=== PATIENT | male | born 1935 | race Caucasian/White ===

== ENCOUNTER 2019-11-15 14:15 | Outpatient (CLI) | payer MEDICARE ==
--- NOTE | 2019-11-15 14:42 | RAD ---
EXAM: 2 views of the bilateral hips HISTORY: Bilateral hip pain COMPARISON: None FINDINGS: 2 views of the bilateral hips shows no evidence of acute fracture or dislocation. Mild bila teral degenerative changes are seen. No soft tissue swelling is present. IMPRESSION: Mild bilateral hip osteoarthritis
--- NOTE | 2019-11-15 16:15 | RAD ---
LUMBAR SPINE TWO VIEWS: History: Low back pain. FINDINGS: Multilevel degenerative changes are present. No acute fracture, subluxation or bony destruction is se en. Avascular calcifications. POS: [facility]
== END 2019-11-15 14:16 | disposition home or self-care (01) ==
LOC: BICRAD 14:15
PROVIDERS: ATTEND Internal Medicine
DX: M54.5 Low back pain (principal); M25.552 Pain in left hip; M25.551 Pain in right hip; M16.0 Bilateral primary osteoarthritis of hip
CPT/HCPCS: 72100; 73522

== ENCOUNTER 2020-03-28 10:40 | Emergency (ER) | payer MEDICARE ==
[2020-03-28 11:35] LABS: #Eosinphils 0.3 thou/uL (0.0-0.7); #Lymphocytes 1.4 thou/uL (1.20-3.40); #Monocytes 0.8 thou/uL (0.11-0.59); #Neutrophils 3.6 thou/uL (1.40-6.50); %Basophils 0.7 % (0.0-1.0); %Eosinophils 4.5 % (0.0-10.0); %Lymphocytes 22.8 % (21.0-51.0); %Monocytes 12.6 % (0.0-10.0); %Neutrophils 59.4 % (42.0-75.0); Hemoglobin 13.2 g/dL (14.0-18.0); Mean Corpuscular HGB CONC 34.1 g/dL (32.0-36.0); Mean Corpuscular Hemoglobin 31.3 pg (27.0-31.0); Mean Corpuscular Volume 91.9 fL (78.0-98.0); Mean Platelet Volume 7.1 fL (7.4-10.4); Platelet Count 187 thou/uL (130-400); RBC Distribution Width 13.1 % (11.5-14.5); Red Blood Cell (RBC) Count 4.21 mill/uL (4.70-6.10); White Blood Cell (WBC) Count 6.1 thou/uL (4.8-10.8)
--- NOTE | 2020-03-28 11:46 | CT ---
BRAIN CT WITHOUT IV CONTRAST: Date; 03/28/2020 HISTORY: Elevated blood pressure for 1 week. FINDINGS: Atherosclerotic calcific changes involving the vertebrobasilar and carotid arteries. No focal mass or midline shift. No intra or extra-axial hemorrhage. Evidence for some postoperative changes involving the right frontal bone. Minimal ethmoid sinus mucosal disease. The mastoids appear clear. IMPRESSION: 1. Atrophy and chronic white matter ischemic change. 2. Mild ethmoid sinus mucosal disease. 3. Atherosclerotic calcification changes. 4. No mass or bleed or other acute process. POS: [facility]
[2020-03-28 12:04] LABS: ALT (SGPT) 17 U/L (8-55); AST (SGOT) 15 U/L (5-34); Albumin 3.8 g/dL (3.4-4.8); Alkaline Phosphatase 96 U/L (40-110); Anion Gap 13 mmol/L (10-20); BUN (Urea Nitrogen) 23 mg/dL (8.4-25.7); Bilirubin, Total 0.4 mg/dL (0.2-1.2); CRP (Inflammatory) Less than 0.50 mg/dL (= or < 0.5); Calc. Creatinine Clearance 0 mL/min (70-130); Carbon Dioxide 21 mmol/L (23-31); Chloride 108 mmol/L (98-107); Estimated GFR-MDRD Greater than 90; Globulin 2.3 g/dL (2.4-3.5); Glucose 93 mg/dL (83-110); Potassium 3.8 mmol/L (3.5-5.1); Protein, Total 6.1 g/dL (5.8-8.1); Sodium 138 mmol/L (136-145)
[2020-03-28] MEDS ORDERED: diphenhydrAMINE 50 MG/ML VIAL ONE (12:34)
[2020-03-28] MEDS ORDERED: Metoclopramide HCl 10 MG/2 ML VIAL ONE (12:34)
[2020-03-28 14:52] LABS: Free T4 (Free Thyroxine) 1.43 ng/dL (0.70-1.48); Thyroid Stimulating Hormone Less than 0.0025 uIU/mL (0.35-4.94)
== END 2020-03-28 14:39 | disposition home or self-care (01) ==
LOC: ERS 10:40
DX: I10 Essential (primary) hypertension (principal); R51.9 Headache, unspecified; E78.00 Pure hypercholesterolemia, unspecified; K21.9 Gastro-esophageal reflux disease without esophagitis; M10.9 Gout, unspecified; N40.0 Benign prostatic hyperplasia without lower urinary tract symptoms; Z79.899 Other long term (current) drug therapy
CPT/HCPCS: 36415; 70450; 80053; 84439; 84443; 84484; 85025; 85652; 86140; 96365; 96375; J1200; J2765

== ENCOUNTER 2020-04-27 17:31 | Emergency (ER) | payer MEDICARE ==
[2020-04-27 18:19] LABS: #Basophils 0.1 thou/uL (0.0-0.2); #Eosinphils 0.2 thou/uL (0.0-0.7); #Lymphocytes 1.2 thou/uL (1.20-3.40); #Monocytes 0.7 thou/uL (0.11-0.59); #Neutrophils 4.2 thou/uL (1.40-6.50); %Basophils 0.8 % (0.0-1.0); %Lymphocytes 19.3 % (21.0-51.0); %Monocytes 11.1 % (0.0-10.0); %Neutrophils 65.7 % (42.0-75.0); Hemoglobin 13.7 g/dL (14.0-18.0); Mean Corpuscular HGB CONC 33.3 g/dL (32.0-36.0); Mean Corpuscular Hemoglobin 30.8 pg (27.0-31.0); Mean Corpuscular Volume 92.5 fL (78.0-98.0); Mean Platelet Volume 7.4 fL (7.4-10.4); Platelet Count 188 thou/uL (130-400); RBC Distribution Width 12.8 % (11.5-14.5); Red Blood Cell (RBC) Count 4.46 mill/uL (4.70-6.10); White Blood Cell (WBC) Count 6.4 thou/uL (4.8-10.8)
[2020-04-27 18:37] LABS: Anion Gap 13 mmol/L (10-20); BUN (Urea Nitrogen) 23 mg/dL (8.4-25.7); Calc. Creatinine Clearance 0 mL/min (70-130); Carbon Dioxide 23 mmol/L (23-31); Chloride 109 mmol/L (98-107); Estimated GFR-MDRD Greater than 90; Glucose 116 mg/dL (83-110); Potassium 3.9 mmol/L (3.5-5.1); Sodium 141 mmol/L (136-145)
[2020-04-27 18:38] LABS: ALT (SGPT) 13 U/L (8-55); AST (SGOT) 15 U/L (5-34); Albumin 3.9 g/dL (3.4-4.8); Alkaline Phosphatase 121 U/L (40-110); Bilirubin, Total 0.4 mg/dL (0.2-1.2); Calcium 8.9 mg/dL (7.8-10.44); Globulin 2.6 g/dL (2.4-3.5); Protein, Total 6.5 g/dL (5.8-8.1)
--- NOTE | 2020-04-27 18:39 | RAD ---
ONE VIEW CHEST: 04/27/20 HISTORY: Tachycardia. COMPARISON: None. FINDINGS: The cardiac silhouette and pulmonary vasculature are within normal limits for the portable technique of the study. Minimal linear densities are seen at the left lung base probably related to mild volume loss. Lungs are otherwise clear. Mild elevation of the right hemidiaphragm is present. Degenerative changes are seen in the spine. Vascular calcifications seen in the thoracic aorta. IMPRESSION: No acute cardiopulmonary process. POS: [facility]
[2020-04-27] MEDS ORDERED: Rocuronium Bromide 10 MG/ML (10ML VIAL) ONE (19:54)
== END 2020-04-27 21:06 | disposition home or self-care (01) ==
LOC: ERS 17:31
DX: I51.7 Cardiomegaly (principal); I10 Essential (primary) hypertension; E78.00 Pure hypercholesterolemia, unspecified; K21.9 Gastro-esophageal reflux disease without esophagitis; M10.9 Gout, unspecified; N40.0 Benign prostatic hyperplasia without lower urinary tract symptoms; Z79.899 Other long term (current) drug therapy
CPT/HCPCS: 36415; 71045; 80053; 83605; 84484; 85025; 87040; 93005

== ENCOUNTER 2020-06-27 07:35 | Outpatient (CLI) | payer MEDICARE ==
--- NOTE | 2020-06-28 10:51 | NM ---
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 Hyperthyroidism. RADIOPHARMACEUTICAL: 255 microcuries Iodine-123 administered orally. FINDINGS: Planar, anterior, and anterior oblique images of the thyroid gland were obtained. There is diffusely increased uptake in both lobes of the thyroid gland without focal hot or cold nodules. The 24 hour uptake measures 40% (normal 10-30%). IMPRESSION: Findings are consistent with hyperthyroid Graves' disease. POS: OFF
== END 2020-06-27 07:36 | disposition home or self-care (01) ==
LOC: NM 07:35
PROVIDERS: ATTEND Internal Medicine Endocrinology, Diabetes & Metabolism
DX: E03.9 Hypothyroidism, unspecified (principal)
CPT/HCPCS: 78014; A9516